=== PATIENT | female | born 1935 | race Caucasian/White ===

== ENCOUNTER → 2023-11-10 12:45 | Outpatient (REF) | payer MEDICARE, OTHER, SELFPAY | LOC: HWRAD 12:45 | PROVIDERS: ATTENDING PHYSICIAN Surgery; FAMILY PHYSICIAN Family Medicine | DX: N20.0 Calculus of kidney (principal) | CPT/HCPCS: 76770 ==

== ENCOUNTER → 2023-11-13 14:29 | Outpatient (REF) | payer MEDICARE, OTHER, SELFPAY | LOC: HWRAD 14:29 | PROVIDERS: ATTENDING PHYSICIAN Surgery; FAMILY PHYSICIAN Family Medicine | DX: N20.0 Calculus of kidney (principal) | CPT/HCPCS: 74018 ==

== ENCOUNTER 2023-12-18 10:34 | Emergency (ER) | payer MEDICARE, OTHER, SELFPAY ==
[2023-12-18 11:08] VITALS: BP 145/74
[2023-12-18 11:27] LABS: % Basophils 0.1 % (0-2); % Immature Granulocytes 0.4 % (0-0.5); % Lymphocytes 4.9 % (20.5-51.1); % Monocytes 6.8 % (1.7-9.3); % Neutrophils 85.8 % (42.2-75.2); Absolute Eosinophils 0.3 10^3/uL (0-0.7); Absolute Immature Granulocytes 0.1 10^3/uL (0-0.05); Absolute Lymphocytes 0.8 10^3/uL (1.2-3.4); Absolute Neutrophils 13.1 10^3/uL (1.4-6.5); Hemoglobin 11.7 g/dL (12.0-16.0); Mean Corp Hgb Conc. 32.5 g/dL (33.0-37.0); Mean Corpuscular Hgb 27.2 pg (27.0-31.0); Mean Corpuscular Volume 83.7 fL (81.0-99.0); Mean Platelet Volume 10.8 fL (7.4-10.4); Nucleated Red Blood Cells % 0 %; Platelet Count 268 10^3/uL (130-400); Red Cell Dist. Width 15.7 % (11.5-14.5); White Blood Cell Count 15.2 10^3/uL (4.8-10.8)
[2023-12-18 11:55] LABS: ALT (SGPT) 12 U/L (0-35); AST (SGOT) 22 U/L (14-36); Albumin 3.9 g/dl (3.5-5.0); Alkaline Phosphatase 86 U/L (38-126); Blood Urea Nitrogen 18 mg/dl (7-17); Calcium 9.6 mg/dl (8.4-10.2); Carbon Dioxide 28 mmol/L (22-30); Chloride 101 mmol/L (98-107); Glucose 201 mg/dl (70-99); Potassium 4.7 mmol/L (3.5-5.1); Sodium 135 mmol/L (135-145); Total Bilirubin 0.4 mg/dl (0.2-1.3); Total Protein 6.6 g/dl (6.3-8.2); eGFR > 60.00
[2023-12-18 12:48] VITALS: BP 138/60
[2023-12-18 13:00] VITALS: BP 128/66
--- NOTE | 2023-12-18 13:00 | ED.GENMED ---
History of Present Illness
General
Chief Complaint: Female [employer]/Gu symptoms
Source: patient
Exam Limitations: none
Time Seen by Provider: 12/18/23 12:42
Nursing documentation reviewed up to this point in time: agreed with
History of Present Illness
History of Present Illness:
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 Womack. States 'he was going to put
me on Cipro but I told him it kills my stomach' so she's been on Macrobid 100 mg BID x 7 days started on 12/14. She was supposed to make appointment for pelvic floor exercises but has not done so as 'I just didn't feel up to it.'
Within a few days of that visit she started feeling fatigue, achy, urine frequency, no dysuria. She also has felt as if she is not emptying her bladder.
This a.m. she had 'dry heaves,' denies nausea now. Has not vomited. Denies abd pain, CP, chronically SOB (nothing new). Denies fever/chills, diarrhea.
Past History
Past History
ED Past Medical History: CAD, HTN, Hypercholesterolemia, NIDDM, Other (Peripheral vascular disease, kidney stones) and Other (Urine retention, sees [employer] uro-Dr. Valente who did cystoscopy 12/03)
ED Past Surgical History: Urological (Stent)
Patient has exhibited threatening behavior?: No
Social History
Tobacco: Former smoker
Alcohol: Occasional
Drug: None
Personal:
Living: assisted living
Employment: Retired
Family History
Family History: Other
Review of Systems
Review of Systems
Allergies reviewed?: Yes
All Other Systems: ROS reviewed and negative except as documented in HPI and ROS
Constitutional: Reports fatigue; Denies fever
Respiratory: Denies trouble breathing (Chronically short of breath due to a large hiatal hernia)
Cardiac: Denies chest pain
ABD/GI: Denies abdominal pain, nausea, vomiting or diarrhea
: Reports frequency and other (Feels as if she is not emptying her bladder); Denies dysuria
Musculoskeletal: Reports no symptoms
Skin: Reports no symptoms
Neurological: Reports no symptoms
Phy Exam
Physical Exam
Physical Exam:
GENERAL: No acute distress. A&Ox3.
CONSTITUTIONAL: Afebrile.
EYES: Clear, conjunctivae normal
ENMT: moist mucus membranes, Pharynx nl
RESPIRATORY: Regular respirations, nonlabored, lungs clear.
CARDIOVASCULAR: Regular rate and rhythm, no murmurs, no rubs.
GI: Soft, nontender, normal BS
MUSCULOSKELETAL: Moves with ease. Well perfused.
SKIN: Warm, dry, pink
PSYCH: Normal mood and affect. Well kept, interactive and appropriate
NEUROLOGIC: Awake, alert and oriented. No focal neurological deficits
Course
Orders/Labs/Results
Orders:
Orders
12/18/23 11:14
CMP [Comprehensive Metabolic Panel] Urgent
Complete Blood Count/With Diff Urgent
12/18/23 12:51
Urinalysis Reflex To Culture Urgent
Date Specimen was Collected: 12/18/23
Time Specimen was Collected: 12:50
Urine Microscopic Reflex Cult Urgent
Urine Culture Urgent
EFRAÍN Source: U
Specimen Description:
Date Specimen was Collected: 12/18/23
Time Specimen was Collected: 12:50
12/18/23 13:37
Bladder Scan- Treatment ONCE
12/18/23 14:06
CR Chest - 2 Views Urgent
Comment:
Reason For Exam: SOB, fever
12/18/23 14:08
Ondansetron HCl [Zofran] 4 mg PO NOW STA
12/18/23 14:09
COVID-19 Antigen Urgent
Source: Nasal Swab
12/18/23 15:33
Acetaminophen [Tylenol] 650 mg PO NOW STA
12/18/23 15:35
Add On- LAB Urgent
Tests Added?: urine culture
Abnormal Lab Results
12/18/23 12/18/23
11:14 12:51
WBC 15.2 H 10^3/uL
(4.8-10.8)
Hgb 11.7 L g/dL
(12.0-16.0)
Hct 36.0 L %
(37.0-47.0)
MCHC 32.5 L g/dL
(33.0-37.0)
RDW 15.7 H %
(11.5-14.5)
MPV 10.8 H fL
(7.4-10.4)
Abs Immat Gran (auto) 0.1 H 10^3/uL
(0-0.05)
Absolute Neuts (auto) 13.1 H 10^3/uL
(1.4-6.5)
Absolute Lymphs (auto) 0.8 L 10^3/uL
(1.2-3.4)
Absolute Monos (auto) 1.0 H 10^3/uL
(0.1-0.6)
Neutrophils % 85.8 H %
(42.2-75.2)
Lymphocytes % 4.9 L %
(20.5-51.1)
BUN 18 H mg/dl
(7-17)
Glucose 201 H mg/dl
(70-99)
Leukocyte Esterase Rfl 1+ A
(Negative)
12/18/23 11:14
12/18/23 11:14
Vital Signs
Initial and Last Documented VS:
Initial Vital Signs
Temp Pulse Resp BP Pulse Ox
100.6 F H 112 20 145/74 95
12/18/23 11:08 12/18/23 11:08 12/18/23 11:08 12/18/23 11:08 12/18/23 11:08
Last Documented Vital Signs
Temp Pulse Resp BP Pulse Ox
98.5 F 89 16 136/59 95
12/18/23 15:04 12/18/23 15:04 12/18/23 15:04 12/18/23 15:04 12/18/23 15:04
MDM/Problems Addressed
Differential Diagnosis Includes:
UTI, urine retention
Viral illness
MDM/Problems Addressed:
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 Womack. States 'he was going to put
me on Cipro but I told him it kills my stomach' so he put her on Macrobid 100 mg BID x 7 days started on 12/14. She was supposed to make appointment for pelvic floor exercises but has not done so as 'I just didn't feel up to it.' . Within a few days
of that visit she started feeling fatigues, achy, urine frequency, no dysuria. She also has felt as if she is not emptying her bladder.
This a.m. she had 'dry heaves,' denies nausea now. Has not vomited. Denies abd pain, CP, chronically SOB (nothing new). Denies fever/chills, diarrhea.
1:30 PM:
CBC: WBC 15.2 CMP with no clinically significant abnormality
CMP: Glucose 201 otherwise normal
Covid neg
U/A neg
2:30 p.m.
CXR: NAD
Nothing in today's w/u to explain pt symptoms, May be viral
Pt instructed to have CBC, BMP rechecked in 3-4 days to recheck WBC and glucose and f/u with her PCP. Provided her with an out pt lab slip
Tylenol given for general achiness
Defervesced, T 98.5
Stable for discharge
*Critical Care Note
Total Time (30-74mins, 75-104mins- exclusive of procedures): Not Applicable
ED Attending Note
-
Portions of this chart may have been created with voice recognition software.� Occasional wrong word or��sound alike� substitutions may have occurred due to the inherent limitations of voice recognition software.
Discharge Plan
Departure
Patient Disposition: Home (Routine Discharge)
Date of Disposition: 12/18/23
Time of Disposition: 15:35
Patient with high blood pressure during this ER visit?: No
Condition: Fair
Discharge Problem:
Urinary frequency, Body aches
Instructions: Nausea and Vomiting, Adult ED
Prescriptions:
New
ondansetron 4 mg tablet,disintegrating
4 mg PO Q8H PRN (Reason: nausea and vomiting) 5 Days Qty: 10 0RF
No Action
Potassium-99 99 MG tablet
99 mg PO DAILY
citalopram 20 MG tablet
20 mg PO DAILY
zaleplon 10 MG capsule
10 mg PO HS
metoprolol succinate 25 MG tablet extended release 24 hr
25 mg PO DAILY
rosuvastatin 10 MG tablet
10 mg PO HS
cholecalciferol (vitamin D3) 1,000 UNITS tablet
1,000 units PO DAILY
PreserVision AREDS-2 1 EACH capsule
1 ea PO DAILY
clopidogrel 75 MG tablet
75 mg PO DAILY Qty: 0 0RF
Patient Comments:
pt took dose of own med after arrival to unit.
oxaprozin [Daypro] 600 mg Tablet
600 mg PO DAILY
vitamin B complex Tablet Extended Release
1 tab PO DAILY
zinc gluconate 50 mg Tablet
50 mg PO DAILY
coenzyme Q10 [Co Q-10] 100 mg Capsule
100 mg PO DAILY
cyclosporine [Restasis] 0.05 % Dropperette
1 drp BOTH EYES BID
omega [id number]-fish oil [Fish Oil] 1,000 mg (120 mg-180 mg) Capsule
1 cap PO DAILY
pantoprazole 40 mg Tablet,Delayed Release (Dr/Ec)
40 mg PO DAILY Qty: 30 0RF
loperamide [Imodium A-D] 2 mg capsule
2 mg PO Q6H PRN (Reason: loose stool) Qty: 14 0RF
Referrals:
Nic Suarez MD [Family Provider] - Call in 1-3 days for appt
Activity Restrictions/Additional Instructions:
As we discussed, your workup here today shows nothing worrisome.
Your white blood cell count is a little elevated and your blood glucose was a little elevated also.
I gave you an outpatient lab slip to get repeat blood work done in 3 days.
Call and make an appointment to see your primary doctor to discuss the blood test results.
I sent a prescription to your pharmacy for Zofran you can take once every 8 hours as needed for nausea
You may have a mild viral illness
Interventions
Interventions:
*Risk Screen - Suicide Last Done: 12/18/23 11:08
*General Assessment Last Done: 12/18/23 11:08
*Neglect/Abuse Screening Last Done: 12/18/23 11:08
ED- Fall Risk Assessment Last Done: 12/18/23 15:44
*ED COVID-19 Vaccine History Last Done: 12/18/23 12:40
*Nursing Disposition Last Done: 12/18/23 15:49
ED-Female Genitourinary Assessment Last Done: 12/18/23 12:53
Discharge Date and Time
Discharge Date/Time: 12/18/23 15:50
Print Language: WOLOF
[2023-12-18 14:11] LABS: Urine Albumin Trace (Neg - Trace); Urine Bilirubin Negative (Negative); Urine Character Clear (Clear); Urine Color Yellow; Urine Glucose Negative (Negative); Urine Ketone Negative (Negative); Urine Leukocyte 1+ (Negative); Urine Nitrite Negative (Negative); Urine Occult Blood Negative (Negative); Urine Specific Gravity 1.015 (<1.030); Urine Urobilinogen Negative (Neg - 1+)
[2023-12-18] MEDS: ZOFRAN 4 MG PO (14:13)
[2023-12-18 14:32] LABS: COVID-19 Antigen Negative (Negative)
[2023-12-18 14:49] LABS: Urine Red Blood Cell 0-2 /HPF (0-2); Urine Squamous Cell >30 /LPF (Few)
[2023-12-18 14:50] LABS: Urine Urothelial Cell 0-2 /LPF (FEW)
[2023-12-18 15:04] VITALS: BP 136/59
[2023-12-18] MEDS: TYLENOL 650 MG PO (15:36)
== END 2023-12-18 15:50 | disposition home or self-care (01) ==
LOC: EMR 10:34
PROVIDERS: Registered Nurse; EMERGENCY PHYSICIAN Emergency Medicine; FAMILY PHYSICIAN Family Medicine
DX: R35.0 Frequency of micturition (principal); R53.83 Other fatigue; I25.10 Atherosclerotic heart disease of native coronary artery without angina pectoris; I10 Essential (primary) hypertension; E78.00 Pure hypercholesterolemia, unspecified; E11.51 Type 2 diabetes mellitus with diabetic peripheral angiopathy without gangrene; G47.419 Narcolepsy without cataplexy; K21.9 Gastro-esophageal reflux disease without esophagitis; Z86.73 Personal history of transient ischemic attack (TIA), and cerebral infarction without residual deficits; Z87.442 Personal history of urinary calculi; Z87.891 Personal history of nicotine dependence
CPT/HCPCS: 99283; 71046; 80053; 81003; 81015; 85025; 87086; 87811; 99282

== ENCOUNTER → 2024-06-24 13:05 | Outpatient (REF) | payer MEDICARE, OTHER, SELFPAY | LOC: HWRCS 13:05 | PROVIDERS: ATTENDING PHYSICIAN Internal Medicine Cardiovascular Disease; FAMILY PHYSICIAN Family Medicine | DX: R06.02 Shortness of breath (principal) | CPT/HCPCS: 93306 ==